=== PATIENT | male | born 1980 | race Caucasian/White ===

== ENCOUNTER → 2016-11-16 | Outpatient (CLI) | payer BC ==
[2016-11-16 20:57] LABS: BUN/CREATININE RATIO 21 (0-10)
== END ==
LOC: LAB 20:13
PROVIDERS: Internal Medicine Nephrology
DX: K52.9 Noninfective gastroenteritis and colitis, unspecified (principal); R17 Unspecified jaundice; N02.8 Recurrent and persistent hematuria with other morphologic changes; N18.2 Chronic kidney disease, stage 2 (mild); E87.5 Hyperkalemia
CPT/HCPCS: 80048; 80076

== ENCOUNTER 2016-12-04 22:10 | Emergency (ER) | payer BC | END 2016-12-05 02:37 | disposition home or self-care (01) | LOC: ER1 22:10 | DX: S61.412A Laceration without foreign body of left hand, initial encounter (principal); I10 Essential (primary) hypertension; Z88.0 Allergy status to penicillin; Z79.899 Other long term (current) drug therapy; W26.9XXA Contact with unspecified sharp object(s), initial encounter; Y92.009 Unspecified place in unspecified non-institutional (private) residence as the place of occurrence of the external cause | CPT/HCPCS: 12001; 99283 ==

== ENCOUNTER 2020-11-21 16:24 | Emergency (ER) | payer OTHER ==
[2020-11-21 18:16] LABS: RED BLOOD COUNT 5.26 M/UL (4.20-5.50)
[2020-11-21 18:39] LABS: BUN/CREATININE RATIO 19 (0-10)
[2020-11-21] MEDS ORDERED: ZOFRAN ODT 4 MG4 MG PO (22:32)
== END 2020-11-21 22:45 | disposition home or self-care (01) ==
LOC: ER1 16:24
PROVIDERS: Emergency Medicine
DX: K57.30 Diverticulosis of large intestine without perforation or abscess without bleeding (principal); Z88.0 Allergy status to penicillin; Z20.822 Contact with and (suspected) exposure to COVID-19
CPT/HCPCS: 71045; 80053; 81001; 82550; 82553; 83605; 83690; 83735; 83874; 84439; 84443; 84484; 85025; 85379; 93005; 99284; J7030; J7040; Q9967; U0002

== ENCOUNTER → 2021-01-29 | Outpatient (CLI) | payer OTHER ==
[~2021-01-29] MED LIST: ZOFRAN ODT 4 MG4 MG PO; ZOFRAN ODT 4 MG4 MG SL
[2021-01-29 14:22] LABS: BUN/CREATININE RATIO 20 (0-10)
== END ==
LOC: LAB 13:37
PROVIDERS: Internal Medicine Nephrology
DX: N18.2 Chronic kidney disease, stage 2 (mild) (principal)
CPT/HCPCS: 36415; 80053; 82570; 84156

== ENCOUNTER 2021-02-19 20:46 | Emergency (ER) | payer OTHER ==
[~2021-02-19 20:46] MED LIST changes: -ZOFRAN ODT 4 MG4 MG SL
[2021-02-19 21:27] LABS: HEMOGLOBIN 14.4 gm/dl (14.0-17.5); RED BLOOD COUNT 4.38 M/UL (4.20-5.50); WHITE BLOOD COUNT 18.5 K/UL (4.5-11.0)
[2021-02-19 22:02] LABS: BUN/CREATININE RATIO 19 (0-10)
[2021-02-20] MEDS ORDERED: ZOFRAN ODT 4 MG4 MG SL (02:54)
== END 2021-02-20 03:30 | disposition home or self-care (01) ==
LOC: ER1 20:46
PROVIDERS: Emergency Medicine
DX: K52.9 Noninfective gastroenteritis and colitis, unspecified (principal)
CPT/HCPCS: 80053; 83605; 83690; 85025; 87040; 96374; 96375; 99284; J1885; J2270; J2405; Q9967

== ENCOUNTER → 2021-06-11 | Outpatient (CLI) | payer OTHER ==
[~2021-06-11] MED LIST changes: +ZOFRAN ODT 4 MG4 MG SL
[2021-06-12 00:12] LABS: BUN/CREATININE RATIO 7 (0-10)
== END ==
LOC: LAB 23:20
PROVIDERS: Internal Medicine Nephrology
DX: N18.2 Chronic kidney disease, stage 2 (mild) (principal)
CPT/HCPCS: 80053; 82570; 84156

== ENCOUNTER → 2021-11-21 | Outpatient (CLI) | payer OTHER ==
[2021-11-21 14:52] LABS: BUN/CREATININE RATIO 8 (0-10)
== END ==
LOC: LAB 13:58
PROVIDERS: Internal Medicine Nephrology
DX: N18.2 Chronic kidney disease, stage 2 (mild) (principal); E87.6 Hypokalemia
CPT/HCPCS: 36415; 80053; 82570; 83735; 84156